=== PATIENT | male | born 1985 | race Caucasian/White ===

== ENCOUNTER 2016-07-21 15:39 | Emergency (ER) | payer MEDICAID, OTHER ==
[~2016-07-21] VITALS: Ht 162.6 cm; Wt 71.0 kg
[2016-07-21 15:42] VITALS: Ht 162.6 cm; Wt 71.0 kg
[2016-07-21] MEDS ORDERED: HYDROmorphONE 1 MG/ML SYG IV STA (15:55)
[2016-07-21] MEDS ORDERED: ONDANSETRON 4 MG INJ IV STA ×2 (15:55→17:20)
[2016-07-21] MEDS ORDERED: SOD CHLORIDE 0.9% 1,000 ML IV STA (15:55)
[2016-07-21 16:16] LABS: BASOPHILS % 0.3 % (0.0-2.0); EOSINOPHILS # 0.1 10^3/ul (0.0-0.5); EOSINOPHILS % 0.8 % (0.0-7.0); HEMATOCRIT 42.1 % (42.0-52.0); HEMOGLOBIN 14.7 g/dl (14.0-18.0); LYMPHOCYTES # 1.7 10^3/ul (0.8-2.9); LYMPHOCYTES % 18.1 % (15.0-51.0); MEAN CORPUSCULAR HEMOGLOBIN 30.4 pg (29.0-33.0); MEAN CORPUSCULAR HGB CONC 34.9 g/dl (32.0-37.0); MEAN CORPUSCULAR VOLUME 87.1 fl (82.0-101.0); MEAN PLATELET VOLUME 9.2 fl (7.4-10.4); MONOCYTE # 0.4 10^3/ul (0.3-0.9); MONOCYTES % 4.7 % (0.0-11.0); NEUTROPHILS % 76.1 % (39.0-77.0); PLATELET COUNT 224 10^3/UL (140-440); RED BLOOD COUNT 4.84 10^6/ul (4.70-6.10); RED CELL DISTRIBUTION WIDTH 12.5 % (11.5-14.5); UNCORRECTED WBC 9.2 10^3/ul (4.8-10.8); WHITE BLOOD COUNT 9.2 10^3/ul (4.8-10.8)
[2016-07-21 16:24] LABS: CONDITION 1
[2016-07-21 16:29] LABS: INR 1.06; PROTIME 13.8 Sec (12.2-14.2); PT RATIO 1.1
[2016-07-21 16:31] LABS: POTASSIUM 3.7 mmol/L (3.5-5.1)
[2016-07-21 16:34] LABS: CREATININE 1.04 mg/dl (0.61-1.24)
[2016-07-21 16:35] LABS: CALCIUM 9.4 mg/dl (8.4-10.2)
--- NOTE | 2016-07-21 16:35 | RADRPT ---
PROCEDURE: XR Chest. CLINICAL INDICATION: chest pain TECHNIQUE: Single AP view of the chest were obtained COMPARISON: None FINDINGS: The heart and mediastinum are within normal limits. The pulmonary vasculature are unremarkable. The aorta is unremarkable. There is no lung consolidation, pleural effusion or pneumothorax. There i s no acute osseous abnormality. IMPRESSION: No acute disease. RPTAT: AA .Mihir Marr MD, Date Time Electronically viewed and signed by .Mihir Marr MD, MD on 07/21/2016 16:35 .J/
--- NOTE | 2016-07-21 16:39 | RADRPT ---
PROCEDURE: XR Tibia and Fibula. CLINICAL INDICATION: Fracture TECHNIQUE: AP and lateral views of the right leg were obtained. COMPARISON: No prior studies are available for comparison. FINDINGS: There are transverse fractures involving the mid to distal right tibial and fibular diaphyses with s light medial displacement. There are no other fractures or dislocations. No focal bony blastic or lytic lesions. No foreign bodies. IMPRESSION: Acute fractures involving the mid to distal right tibial and fibular diaphyses as above. RPTAT:AAJJ Physician Vandana Date Time Electronically viewed and signed by Surya Llamas Physician on 07/21/2016 16:38 BM/
[2016-07-21] MEDS ORDERED: KETOROLAC 15 MG INJ IV STA (16:51)
[2016-07-21] MEDS ORDERED: morphine 4 MG/ML VIAL IV STA (17:20)
[2016-07-21] MEDS ORDERED: IBUP-1542 PO (17:20)
[2016-07-21] MEDS ORDERED: OXYC-279 PO (17:20)
--- NOTE | 2016-07-21 17:25 | ERD ---
ER Documentation Chief Complaint Date/Time DATE: 07/21/16 TIME: 17:22 Chief Complaint right distal tib/fib pain,deformity noted HPI 31-year-old man brought in by EMS for right leg pain and swelling after soccer injury about half an hour prior to arrival. He was kicked by another player to the right lateral mid leg. He denies head or neck injury, no headache or blurry vision, no chest pain or shortness of breath. Patient was unable to ambulate after the injury although denies paresis or paresthesias. ROS All systems reviewed and are negative except as per history of present illness. Medications Home Meds Active Scripts Ibuprofen* (Ibuprofen*) 600 Mg Tablet, 600 MG PO Q8 for PAIN AND/OR INFLAMMATION , #60 TAB Prov:JENNY CID MD 07/21/16 Oxycodone HCl/Acetaminophen (Percocet 5-325 mg Tablet) 1 Each Tablet, 1 EACH PO TID, #20 TAB Prov:JENNY CID MD 07/21/16 Allergies Allergies: Coded Allergies: No Known Allergy (Unverified , 07/21/16) PMhx/Soc None Medical and Surgical Hx: pt denies Medical Hx, pt denies Surgical Hx Hx Alcohol Use: No Hx Substance Use: No Hx Tobacco Use: No Smoking Status: Never smoker FmHx Family History: No diabetes Physical Exam Vitals Vital Signs Date Time Temp Pulse Resp B/P Pulse Ox O2 Delivery O2 Flow Rate FiO2 07/21/16 17:32 80 16 103/73 99 Room Air 07/21/16 17:27 74 20 111/74 99 Room Air 07/21/16 15:42 98.1 88 20 118/81 99 Physical Exam GENERAL: Well-developed, well-nourished, well-hydrated, in moderate pain HEENT: Moist mucous membranes, pink conjunctiva, no cervical spine tenderness or step-off deformities, no goiter, no jaundice or icterus, extraocular movements intact without pain. No submandibular induration, and no pharyngeal erythema NEURO: Alert and oriented 3, cranial nerves II through XII intact bilaterally, pupils equal round reactive to light, no focal deficits or facial asymmetry, sensation intact distally Strength 5/5 in upper and lower extremities bilaterally CARDIAC: Regular rate and rhythm, no murmurs rubs or gallops LUNGS: Clear bilaterally no wheezing crackles or stridor ABDOMEN: Soft nontender, no guarding, no rigidity, no rebound, no psoas sign no obturator sign. Normoactive bowel sounds SKIN: Warm and dry to touch, positive soft tissue contusion to the right anterior leg, no target lesions, and without ulcers EXTREMITIES: No clubbing cyanosis or edema, soft tissue or bony tenderness to touch over the anterior right mid leg, no Homans sign, no popliteal cord sign. Distal pulses equal and bilateral, toes are pink and warm to touch bilaterally PSYCH: Normal affect without agitation or irritability Result Diagram: 07/21/16 1600 07/21/16 1600 Results 24 hrs Laboratory Tests Test 07/21/16 16:00 Anion Gap 19 Basophils # 0.010^3/ul Basophils % 0.3% Blood Urea Nitrogen 20mg/dl Calcium Level 9.4mg/dl Carbon Dioxide Level 28mmol/L Chloride Level 100mmol/L Creatinine 1.04mg/dl Eosinophils # 0.110^3/ul Eosinophils % 0.8% Glucose Level 100mg/dl Hematocrit 42.1% Hemoglobin 14.7g/dl INR International Normalized Ratio 1.06 Lymphocytes # 1.710^3/ul Lymphocytes % 18.1% Mean Corpuscular Hemoglobin 30.4pg Mean Corpuscular Hemoglobin Concent 34.9g/dl Mean Corpuscular Volume 87.1fl Mean Platelet Volume 9.2fl Monocytes # 0.410^3/ul Monocytes % 4.7% Neutrophils # 7.010^3/ul Neutrophils % 76.1% Nucleated Red Blood Cells # 0.010^3/ul Nucleated Red Blood Cells % 0.0/100WBC Platelet Count 24472^3/UL Potassium Level 3.7mmol/L Prothrombin Time 13.8Sec Prothrombin Time Ratio 1.1 Red Blood Count 4.8410^6/ul Red Cell Distribution Width 12.5% Sodium Level 143mmol/L White Blood Count 9.210^3/ul Current Medications Medications (Trade) Dose Ordered Sig/Bernardo Route PRN Reason Start Time Stop Time Status Last Admin Dose Admin Sodium Chloride (NS) 1,000 ml @ 1,000 mls/hr Q1H STAT IV 07/21/16 15:55 07/21/16 16:54 DC 07/21/16 16:07 Hydromorphone HCl (Dilaudid) 1 mg ONCE STAT IV 07/21/16 15:55 07/21/16 15:57 DC 07/21/16 16:06 Ondansetron HCl (Zofran Inj) 4 mg ONCE STAT IV 07/21/16 15:55 07/21/16 15:57 DC 07/21/16 16:06 Ketorolac Tromethamine (Toradol) 15 mg ONCE STAT IV 07/21/16 16:51 07/21/16 16:52 DC 07/21/16 16:57 Morphine Sulfate (morphine) 4 mg ONCE STAT IV 07/21/16 17:20 07/21/16 17:22 DC 07/21/16 17:32 Ondansetron HCl (Zofran Inj) 4 mg ONCE STAT IV 07/21/16 17:20 07/21/16 17:22 DC 07/21/16 17:32 Procedures/MDM IV line was established patient was placed on clinical research monitor rhythm strip revealed a sinus rhythm at about 80 bpm with upright P and T waves. X-ray right Tib/Fib 2V Interpreted by me: Bones: There are transverse fractures across the midshaft of the right tibia and fibula with minimal displacement. Joints: No dislocation Foreign body: None I administered 1 L normal saline intravenously, hydromorphone 1 mg IV, Toradol 15 mg IV, and then morphine 4 mg IV with Zofran 4 mg IV, although this last round of analgesics was given during splinting procedure. Procedure note: I splinted the right lower extremity with a long posterior leg splint as well as a stirrup splint which were both wrapped in Sam elastic bandage for comfort and supportive measures. After splinting symptoms improved. Splint Assessment: Neurovascularly intact post splint placement with good fit. Both written and verbal instructions for follow-up were given to the patient and his who was at the bedside. CBC and electrolytes were normal, coagulation profile was normal. Differential diagnoses considered, included but not limited to compartment syndrome, popliteal artery dissection versus aneurysm, other fractures, sepsis, stroke, meningitis, encephalitis, pneumonia, appendicitis, cholecystitis, bowel obstruction, pyelonephritis, nephrolithiasis, cystitis, as well as metabolic, hematologic, and electrolyte abnormalities. As well as abscess, cellulitis, fractures, and dislocations. Patient feels much better at this time, and vital signs are normal, symptoms have improved. I did give strict instructions to return to the ED if symptoms continue or worsen, patient will otherwise follow-up with primary care physician. Patient understood instructions and agreed to plan. Departure Diagnosis: Primary Impression: Tibia/fibula fracture Encounter type: initial encounter Fracture type: closed Laterality: right Qualified Code: S82.201A - Tibia/fibula fracture, right, closed, initial encounter Condition: Good Patient Instructions: Fracture, Lower Extremity JENNY CID MD Jul 21, 2016 17:25
[2016-07-21 17:32] VITALS: BP 103/73; PULSE 80; RESP 16
== END 2016-07-21 17:37 | disposition home or self-care (01) ==
LOC: E/R 15:39
DX: S82.201A Unspecified fracture of shaft of right tibia, initial encounter for closed fracture (principal); S82.401A Unspecified fracture of shaft of right fibula, initial encounter for closed fracture; R40.2142 Coma scale, eyes open, spontaneous, at arrival to emergency department; R40.2252 Coma scale, best verbal response, oriented, at arrival to emergency department; R40.2362 Coma scale, best motor response, obeys commands, at arrival to emergency department; R07.9 Chest pain, unspecified; W50.1XXA Accidental kick by another person, initial encounter; Y92.9 Unspecified place or not applicable
CPT/HCPCS: 29505; 71010; 73590; 80048; 85025; 85610; J1170; J1885; J2270; J2405; J7030; 36415; 96374; 96375; 96376